=== PATIENT | male | born 1965 | race Caucasian/White ===

== ENCOUNTER → 2020-07-27 07:19 | Outpatient (BNVA) | payer SELFPAY | PROVIDERS: PCP Internal Medicine; Visit Provider Internal Medicine | DX: Z02.79 Encounter for issue of other medical certificate (principal) ==

== ENCOUNTER → 2021-07-29 08:59 | Outpatient (BNVA) | payer SELFPAY | PROVIDERS: PCP Internal Medicine; Visit Provider Internal Medicine | DX: Z02.79 Encounter for issue of other medical certificate (principal) ==

== ENCOUNTER → 2022-07-29 08:18 | Outpatient (BNVA) | payer SELFPAY | PROVIDERS: PCP Internal Medicine; Visit Provider Internal Medicine | DX: Z02.79 Encounter for issue of other medical certificate (principal) ==

== ENCOUNTER 2023-01-23 08:12 | Outpatient (REF) | payer MEDICARE, SELFPAY ==
[2023-01-23 12:05] LABS: Cholesterol 207 mg/dL (<200); HDL Cholesterol 50 mg/dL (>40); LDL Cholesterol Calculated 138 mg/dL (<100); Triglycerides 96 mg/dL (<150)
[2023-01-23 12:29] LABS: Prostate Specific Antigen 0.36 ng/mL (<0.05-4.0)
[2023-01-23 12:57] LABS: Alanine Aminotransferase 26 U/L (0-40); Albumin Level 4.2 g/dL (3.5-5.0); Alkaline Phosphatase 71 U/L (39-117); Anion Gap 14 (12-20); Aspartate Amino Transferase 26 U/L (5-37); Bilirubin Direct 0.2 mg/dL (0.0-0.5); Bilirubin Total 0.8 mg/dL (0.0-1.0); Blood Urea Nitrogen 14 mg/dL (9-16); Calcium 9.4 mg/dL (8.4-10.2); Carbon Dioxide 21 mmol/L (22-29); Chloride 109 mmol/L (96-108); Estimated Glomerular Filt Rate > 60; Glucose Random 101 mg/dL (60-115); Potassium 3.9 mmol/L (3.3-5.1); Sodium 140 mmol/L (135-145); Total Protein 7.6 g/dL (6.5-8.0)
[2023-01-23 13:14] LABS: Reflex LDLD? No
[2023-01-24 04:14] LABS: ~HepC Num1 0.26 S/CO (0.00-0.79); ~Hepatitis C Antibody Nonreactive (Nonreactive)
== END 2023-01-23 08:13 | disposition home or self-care (01) ==
LOC: HO.HHCL 08:12
PROVIDERS: Visit Provider Internal Medicine
DX: Z00.00 Encounter for general adult medical examination without abnormal findings (principal); E78.2 Mixed hyperlipidemia; I10 Essential (primary) hypertension; Z12.5 Encounter for screening for malignant neoplasm of prostate
CPT/HCPCS: 36415; 80048; 80061; 80076; 84153; 86803

== ENCOUNTER → 2023-07-29 08:34 | Outpatient (BNVA) | payer SELFPAY | PROVIDERS: PCP Internal Medicine; Visit Provider Internal Medicine | DX: Z02.79 Encounter for issue of other medical certificate (principal) ==

== ENCOUNTER 2023-11-20 07:57 | Outpatient (REF) | payer MEDICARE, SELFPAY ==
[2023-11-20 12:03] LABS: Alanine Aminotransferase 39 U/L (0-40); Albumin Level 4.4 g/dL (3.5-5.0); Alkaline Phosphatase 75 U/L (39-117); Anion Gap 12 (12-20); Aspartate Amino Transferase 31 U/L (5-37); Bilirubin Direct 0.2 mg/dL (0.0-0.5); Bilirubin Total 0.7 mg/dL (0.0-1.0); Blood Urea Nitrogen 11 mg/dL (9-16); Calcium 9.4 mg/dL (8.4-10.2); Carbon Dioxide 25 mmol/L (22-29); Chloride 108 mmol/L (96-108); Cholesterol 211 mg/dL (<200); Estimated Glomerular Filt Rate > 60; Glucose Random 120 mg/dL (60-115); HDL Cholesterol 53 mg/dL (>40); LDL Cholesterol Calculated 128 mg/dL (<100); Sodium 141 mmol/L (135-145); Total Protein 7.9 g/dL (6.5-8.0); Triglycerides 150 mg/dL (<150)
[2023-11-20 12:09] LABS: Reflex LDLD? No
== END 2023-11-20 07:58 | disposition home or self-care (01) ==
LOC: HO.HHCL 07:57
PROVIDERS: Visit Provider Internal Medicine
DX: E78.2 Mixed hyperlipidemia (principal); I10 Essential (primary) hypertension; R73.02 Impaired glucose tolerance (oral)
CPT/HCPCS: 36415; 80048; 80061; 80076

== ENCOUNTER → 2024-07-27 07:50 | Outpatient (BNVA) | payer SELFPAY | PROVIDERS: PCP Internal Medicine; Visit Provider Internal Medicine | DX: Z02.79 Encounter for issue of other medical certificate (principal) ==

== ENCOUNTER 2025-01-03 08:04 | Outpatient (REF) | payer BC, SELFPAY ==
[2025-01-03 11:52] LABS: Alanine Aminotransferase 30 U/L (0-40); Albumin Level 4.6 g/dL (3.5-5.0); Alkaline Phosphatase 72 U/L (39-117); Anion Gap 11 (12-20); Aspartate Amino Transferase 41 U/L (5-37); Blood Urea Nitrogen 15 mg/dL (9-16); Calcium 9.2 mg/dL (8.4-10.2); Carbon Dioxide 25 mmol/L (22-29); Chloride 109 mmol/L (96-108); Cholesterol 191 mg/dL (<200); Estimated Glomerular Filt Rate > 60; HDL Cholesterol 59 mg/dL (>40); Potassium 3.9 mmol/L (3.3-5.1); Sodium 141 mmol/L (135-145); Total Protein 7.5 g/dL (6.5-8.0); Triglycerides 66 mg/dL (<150)
[2025-01-03 12:46] LABS: Protein/Creatinine Ratio, Ur 0.16 (<0.2); Total Protein Urine Random 20 mg/dL (<12)
== END 2025-01-03 08:05 | disposition home or self-care (01) ==
LOC: HO.HHCL 08:04
PROVIDERS: PCP Internal Medicine; Visit Provider Internal Medicine
DX: I10 Essential (primary) hypertension (principal); R80.0 Isolated proteinuria
CPT/HCPCS: 36415; 80053; 80061; 82570; 84153; 84156; 84443

== ENCOUNTER 2025-02-07 14:28 | Outpatient (REF) | payer BC, SELFPAY ==
[2025-02-07 16:43] LABS: Alanine Aminotransferase 20 U/L (0-40); Albumin Level 4.2 g/dL (3.5-5.0); Alkaline Phosphatase 81 U/L (39-117); Anion Gap 11 (12-20); Aspartate Amino Transferase 25 U/L (5-37); Blood Urea Nitrogen 15 mg/dL (9-16); Calcium 8.8 mg/dL (8.4-10.2); Carbon Dioxide 26 mmol/L (22-29); Chloride 106 mmol/L (96-108); Estimated Glomerular Filt Rate > 60; Potassium 4.3 mmol/L (3.3-5.1); Sodium 139 mmol/L (135-145); Total Protein 7.2 g/dL (6.5-8.0)
--- OUTSIDE RECORDS SUMMARY | 2025-02-07 17:03 | XMS_ITS | Encounter Summary ---
Author Organization [employer] Address [address] [facility] [address] [place] [address] Care Team Providers Care Campus Interviews Intern Name Role Phone Corona Obrien MD Primary Care Provide r Reason for Visit * Reason Comments Med Refill Encounter Details Date Type Department Care Team ([facility] st Contact Info) Description 02/05/2025 Refill [facility] [address] [place], [place] [phone] Corona Obrien MD [address] [place] [address] Social History Tobacco Use Types Packs/Day Years Used Date Smoking Tobacco: Never Passive Smoke Exposure: Never Smokeless Tobacco: Never Alcohol Use Standard Drinks/Week Comments Never 0 (1 standard drink = 0.6 oz pur e alcohol) Depression Answer Date Recorded Patient Health Questionnaire-9 Score 0 05/24/2024 Patient Health Questionnaire-9 Score 0 05/24/2024 Last PHQ-9: Questionnaire Data Not on file 1 07/25/2023 Housing Stability Answer Date Recorded What is your housing situation today? I have prachi sing 10/04/[address] you li ve. Do you have problems with any of the following? None of the above 10/04/2024 Food Insecurity Answer Date Recorded Within the past 12 months, y ou worried that your food would run out before you got money to buy more: Never True 10/04/2024 Within the past 12 months,th e food you bought just didn't last and you didn't have enough money to get more: Never True 10/2024 Transportation Answer Date Recorded In the past 12 months, has l ack of transportation kept you from medical appts, meetings, work or from getting things needed for daily living? No 01/24/2025 Utilities Answer Date Recorded In the past 12 months, has t he electric, gas, oil or water company threatened to shut off services in your home? No 10/04/2024 Depression Answer Date Recorded Patient Health Questionnaire-2 Score 0 05/24/2024 Internet Access Answer Date Recorded Internet Access Q1 Yes 10/04/2024 Internet Access Q2 Not on file 10/04/2024 Sex and Gender Information Value Date Recorded Sex Assigned at Male 03/31/2022 10:17 AM EDT Legal Sex Male 10:17 AM EDT Gender Identity Male 03/31/2022 10:17 AM EDT Sexual Orientation Straight 03/31/2022 10 :17 AM EDT documented as of this encounter Plan of Treatment Not on file documented as of this encounter Visit Diagnoses Not on filedocumented in this encounter Additional Health Concerns Assessment Noted Time PHQ-9 Depression Total Score: 0 05/24/20 9:08 AM EST documented as of this encounter Care Teams Campus Interviews Intern Relationship Specialty Start Date End Date Corona Obrien MD [address] [place] [id number] PCP - General Internal Medicine 01/26/14 documented as of this encounter
--- OUTSIDE RECORDS SUMMARY | 2025-02-07 17:03 | XMS_ITS | Encounter Summary ---
Author Organization [employer] Address [address] [facility] [address] [place] [address] Care Team Providers Care [employer] Name Role Phone Corona Obrien MD Primary Care Provide r Encounter Details Date Type Department Care Team (Latest Contact Info) Description 09/11/2020 Abstract [facility] CONVERSIONS Dental, Provider, DDS Social History Tobacco Use Types Packs/Day Years Used Date Smoking Tobacco: Never Assessed Sex and Gender Information Value Date Recorded Sex Assigned at Male 03/31/2022 10:17 AM EDT Legal Sex Male 10:17 AM EDT Gender Identity Male 03/31/2022 10:17 AM EDT Sexual Orientation Straight 03/31/2022 10 :17 AM EDT documented as of this encounter Plan of Treatment Not on file documented as of this encounter Visit Diagnoses Not on filedocumented in this encounter Care Teams [employer] Relationship Specialty Start Date End Date Corona Obrien MD [address] [place] [id number] PCP - General Internal Medicine 01/26/14 documented as of this encounter
--- OUTSIDE RECORDS SUMMARY | 2025-02-07 17:03 | XMS_ITS | Clinical Summary ---
Author Organization [employer] Address [address] [facility] [address] [place] [address] Care Team Providers Care Collateral Specialist Name Role Phone Corona Obrien MD Primary Care Provide r Allergies Active Allergy Reactions Criticality Noted Date Comments Lisinopril 01/16/2016 Other reaction(s): Angioedema Medications amLODIPine (Norvasc) 10 MG tablet TAKE 1 TABLET BY MOUTH EVERY DAY 90 tablet 1 02/08/20 25 Active metoprolol succinate XL (Toprol XL) 25 MG 24 hr tabletIndicatio ns:Essential hypertension Take 1 tablet (25 mg) by mouth Once per day. Do not crush or chew. 30 tablet 3 05/24/20 24 025 Discontinued(T herapy completed) amLODIPine (Norvasc) 10 MG tablet Take 1 tablet (10 mg) by mouth Once per day. 90 tablet 1 08/17/19 25 025 Discontinued amoxicillin-cla vulanate (Augmentin) 875-125 MG tabletIndicatio ns:Acute frontal sinusitis, recurrence not specified Take 1 tablet by mouth 2 times daily for 7 days. 14 tablet 01/19/20 25 025 Discontinued fluticasone (Flonase) 50 MCG/ACT nasal sprayIndication s:Acute frontal sinusitis, recurrence not specified Administer 1 spray into each nostril Once per day. Shake gently. Before first use, prime pump. After use, clean tip and replace cap. 16 g 2 01/19/20 25 025 Discontinued amoxicillin-cla vulanate (Augmentin) 875-125 MG tabletIndicatio ns:Acute frontal sinusitis, recurrence not specified Take 1 tablet by mouth 2 times daily for 7 days. 14 tablet 01/19/20 025 Discontinued(T herapy completed) fluticasone (Flonase) 50 MCG/ACT nasal sprayIndication s:Acute frontal sinusitis, recurrence not specified Administer 1 spray into each nostril Once per day. Shake gently. Before first use, prime pump. After use, clean tip and replace cap. 16 g 2 01/19/20 025 Discontinued(T herapy completed) Active Problems Problem Noted Date Diagnosed Date Isolated proteinuria 10/04/2024 Overview (10/04/2024): Protein detected on UA at work connection Plan: Repeat, collect 24 hr urine Overweight (BMI 25.0-29.9) 07/21/2023 Assessment & Plan (01/24/2025 9:37 AM EDT): Images from the original note were not included. Patient has managed to loose weight In the past he has been counseled and educated about diet and exercise. Personal goal of weight loss discussed Patient has comorbidity of:HTN Assessment & Plan (07/21/2023 8:18 AM EST): Patient has been counseled and educated about diet and exercise. Personal goal of weight loss discussedPatient has comorbidity of:HTN Preventative health care 01/22/2023 Assessment & Plan (01/24/2025 9:38 AM EDT): PSA test 12/2024 Normal. Colonoscopy: 06/30/2016 Dr Bc Pink Assessment & Plan (05/24/2024 9:10 AM EST): KILEY: PSA test 01/23/2023 was Normal, ordered today Colonoscopy: 06/30/2016 Dr Bc Pink Assessment & Plan (07/21/2023 8:16 AM EST): KILEY: PSA test 01/23/2023 was Normal Colonoscopy: 06/30/2016 Dr Bc Pink Assessment & Plan (01/22/2023 3:09 PM EDT): KILEY: Declined, PSA test 04/11/2021 was Normal Colonoscopy: 06/30/2016 Dr Yancey Normal Impaired glucose tolerance 05/13/2018 Assessment & Plan (01/24/2025 9:36 AM EDT): FBS 01/03/2025: 99. Previously 11/20/2023 120 Hgb A1c 11/24/2023: 6.3 Previously discussed the need to continue to adhere to a low sugar lo carb diet , exercise and lifestyle changes Previously I had recommended to start Metformin XR 500 mg po daily, Pt continues to declines starting any type of medication. Insists that he would like to continue to try to loose weight Being followed by [employer]. 4 month follow up Assessment & Plan (10/04/2024 9:28 AM EDT): FBS 11/20/2023 120 Hgb A1c 11/24/2023: 6.3 Previously discussed the need to continue to adhere to a low sugar lo carb diet , exercise and lifestyle changes Previously I had recommended to start Metformin XR 500 mg po daily, Pt continues to declines starting any type of medication. Insists that he would like to continue to try to loose weight Referred to our [employer] in the past, will repeat 4 month follow up Assessment & Plan (05/24/2024 9:10 AM EST): FBS 11/20/2023 120 Hgb A1c 11/24/2023: 6.3 Previously discussed the need to continue to adhere to a low sugar lo carb diet , exercise and lifestyle changes Previously I had recommended to start Metformin XR 500 mg po daily, Pt continues to declines starting any type of medication. Insists that he would like to continue to try to loose weight Referred to our [employer] in the past 4 month follow up Assessment & Plan (11/24/2023 10:07 AM EDT): FBS 11/20/2023 120 Hgb A1c 11/24/2023: 6.3 again discussed the need to continue to adhere to a low sugar lo carb diet , exercise and lifestyle changes Previously I had recommended to start Metformin XR 500 mg po daily, Pt continues to declines starting any type of medication. Insists that he would like to continue to try to loose weight Referred to our [employer] 4 month follow up Assessment & Plan (07/21/2023 8:15 AM EST): FBS 01/23/2023 101 again discussed the need to continue to adhere to a low sugar lo carb diet , exercise and lifestyle changes Previously I had recommended to start Metformin XR 500 mg po daily, Pt declined would like to continue to try to loose weight Repeat [facility]BG Assessment & Plan (01/22/2023 3:09 PM EDT): FBS 01/03/2023 107 again discussed the need to continue to adhere to a low sugar lo carb diet , exercise and lifestyle changes Previously I had recommended to start Metformin XR 500 mg po daily, Pt declined would like to continue to try to loose weight Repeat FBG Essential hypertension 02/12/2016 Assessment & Plan (01/24/2025 9:34 AM EDT): Patient with Hypertension, here for a f/u BP today: controlled Previously reviewed pt's BP at home within normal ranges. patient is taking Amlodipine 10 mg po daily. Of note: Chlorthalidone made him feel sick , Lisinopril gave him angioedema Most recent electrolytes, Bun and Creatinine done on: Lab Results Component Value Date NA 141 01/03/2025 NA 141 11/20/2023 K 3.9 01/03/2025 K 4.0 11/20/2023 CL 109 (H) 01/03/2025 CL 108 11/20/2023 BUN 15 01/03/2025 BUN 11 11/20/2023 CREATININE 0.90 01/03/2025 CREATININE 0.84 11/20/2023 were wnl . Plan: continue current regimen patient advised to adhere to a low sodium diet, encouraged about medication compliance, counseled about weight loss. 4 month follow up He has been seen by our warehouse supervisor his ASCVD risk score has come down The 10-year ASCVD risk score (Dustin JERNIGAN, et al., 2019) is: 6.9% Values used to calculate the score: Age: 59 years Sex: Male Is Non- : No Diabetic: No Tobacco smoker: No Systolic Blood Pressure: 130 mmHg Is BP treated: No HDL Cholesterol: 59 mg/dL Total Cholesterol: 191 mg/dL Assessment & Plan (01/18/2025 6:44 PM EDT): Today blood pressure is slightly elevated I advised low-sodium diet and to take his medication every day and to follow-up with PCP Assessment & Plan (10/04/2024 9:27 AM EDT): Patient with Hypertension, here for a f/u BP today: elevated, pt's BP at home within normal ranges pt brought his monitor patient is taking Amlodipine 10 mg po daily. Of note: Chlorthalidone made him feel sick , Lisinopril gave him angioedema Most recent electrolytes, Bun and Creatinine done on: Lab Results Component Value Date NA 141 11/20/2023 NA 140 01/23/2023 K 4.0 11/20/2023 K 3.9 01/23/2023 CL 108 11/20/2023 CL 109 (H) 01/23/2023 BUN 11 11/20/2023 BUN 14 01/23/2023 CREATININE 0.84 11/20/2023 CREATININE 0.90 01/23/2023 11/20/2023 were wnl . Plan: continue current regimen, repeat BMP patient advised to adhere to a low sodium diet, encouraged about medication compliance, counseled about weight loss. 4 month follow up Referred to our warehouse supervisor Discussed with patient his ASCVD risk score The 10-year ASCVD risk score (Dustin JERNIGAN, et al., 2019) is: 11.9% Values used to calculate the score: Age: 59 years Sex: Male Is Non- : No Diabetic: No Tobacco smoker: No Systolic Blood Pressure: 148 mmHg Is BP treated: Yes HDL Cholesterol: 53 mg/dL Total Cholesterol: 211 mg/dL Assessment & Plan (05/24/2024 9:18 AM EST): Patient with Hypertension, here for a f/u BP today: elevated, pt's BP at home within normal ranges pt brought his monitor patient is taking Amlodipine 10 mg po daily. Of note: Chlorthalidone made him feel sick , Lisinopril gave him angioedema Most recent electrolytes, Bun and Creatinine done on: Lab Results Component Value Date NA 141 11/20/2023 NA 140 01/23/2023 K 4.0 11/20/2023 K 3.9 01/23/2023 CL 108 11/20/2023 CL 109 (H) 01/23/2023 BUN 11 11/20/2023 BUN 14 01/23/2023 CREATININE 0.84 11/20/2023 CREATININE 0.90 01/23/2023 11/20/2023 were wnl . Plan: continue current regimen patient advised to adhere to a low sodium diet, encouraged about medication compliance, counseled about weight loss. 4 month follow up Referred to our warehouse supervisor Discussed with patient his ASCVD risk score The 10-year ASCVD risk score (Dustin JERNIGAN, et al., 2019) is: 9% Values used to calculate the score: Age: 58 years Sex: Male Is Non- : No Diabetic: No Tobacco smoker: No Systolic Blood Pressure: 144 mmHg Is BP treated: No HDL Cholesterol: 53 mg/dL Total Cholesterol: 211 mg/dL Assessment & Plan (11/24/2023 10:05 AM EDT): Patient with Hypertension, here for a f/u BP today: elevated patient is taking Amlodipine 10 mg po daily. Of note: Chlorthalidone made him feel sick , Lisinopril gave him angioedema Most recent electrolytes, Bun and Creatinine done on: 11/20/2023 were wnl . Plan: patient declines adding anything to his regimen, wants to loose weight. patient advised to adhere to a low sodium diet, encouraged about medication compliance, counseled about weight loss. 4 month follow up Referred to our warehouse supervisor Discussed with patient his ASCVD risk score The 10-year ASCVD risk score (Dustin JERNIGAN, et al., 2019) is: 9% Values used to calculate the score: Age: 58 years Sex: Male Is Non- : No Diabetic: No Tobacco smoker: No Systolic Blood Pressure: 144 mmHg Is BP treated: No HDL Cholesterol: 53 mg/dL Total Cholesterol: 211 mg/dL Assessment & Plan (07/21/2023 9:17 AM EST): Patient with Hypertension, here for a f/u BP today: slightly elevated patient is taking Amlodipine 10 mg po daily. Of note: Chlorthalidone made him feel sick , Lisinopril gave him angioedema Most recent electrolytes, Bun and Creatinine done on: 01/23/2023 were wnl . Will repeat Plan: Continue with current regimen patient advised to adhere to a low sodium diet, encouraged about medication compliance, counseled about weight loss. 6 month follow up Assessment & Plan (01/22/2023 3:28 PM EDT): Patient with Hypertension, here for a f/u BP today slightly elevated, although pt checks his BP at home once a week and his sytolics are always between 120-130 per hi report. So I suspect a component of while coat hypertension patient is taking Amlodipine 10 mg po daily. Of note: Chlorthalidone made him feel sick , Lisinopril gave him angioedema Most recent electrolytes, Bun and Creatinine done on: 01/03/2022 were wnl . Will repeat Plan: Continue with current regimen patient advised to adhere to a low sodium diet, encouraged about medication compliance, counseled about weight loss. 6 month follow up Hyperlipidemia 02/12/2016 Assessment & Plan (01/24/2025 9:35 AM EDT): Patient with elevated lipids. Most recent lipid profile from showed: Lab Results Component Value Date TRIG 66 01/03/2025 TRIG 150 (H) 11/20/2023 CHOL 191 01/03/2025 CHOL 211 (H) 11/20/2023 LDLCHOLCAL 119 (H) 01/03/2025 LDLCHOLCAL 128 (H) 11/20/2023 HDL 59 01/03/2025 HDL 53 11/20/2023 Currently not on a regimen . Pt on diet and exercise Pt does not wan to consider medication convinced he can lower it if he adheres to a low cholesterol diet, For now will continue with diet and exercise. advised to try to adhere to a low cholesterol diet, counseled and educated about diet and exercise, Patient encouraged to come up with a personal goal for weight loss. Being followed by our warehouse supervisor. Assessment & Plan (10/04/2024 9:29 AM EDT): Patient with elevated lipids. Most recent lipid profile from: 11/20/2023 showed: Lab Results Component Value Date TRIG 150 (H) 11/20/2023 TRIG 96 01/23/2023 CHOL 211 (H) 11/20/2023 CHOL 207 (H) 01/23/2023 LDLCHOLCAL 128 (H) 11/20/2023 LDLCHOLCAL 138 (H) 01/23/2023 HDL 53 11/20/2023 HDL 50 01/23/2023 Currently not on a regimen . Pt on diet and exercise Pt does not wan to consider medication convinced he can lower it if he adheres to a low cholesterol diet, For now will continue with diet and exercise, repeat Lipid profile advised to try to adhere to a low cholesterol diet, counseled and educated about diet and exercise, Patient encouraged to come up with a personal goal for weight loss. Referred to warehouse supervisor in the past. Assessment & Plan (05/24/2024 9:09 AM EST): Patient with elevated lipids. Most recent lipid profile from: 11/20/2023 showed: Lab Results Component Value Date TRIG 150 (H) 11/20/2023 TRIG 96 01/23/2023 CHOL 211 (H) 11/20/2023 CHOL 207 (H) 01/23/2023 LDLCHOLCAL 128 (H) 11/20/2023 LDLCHOLCAL 138 (H) 01/23/2023 HDL 53 11/20/2023 HDL 50 01/23/2023 Currently not on a regimen . Pt on diet and exercise Pt does not wan to consider medication convinced he can lower it if he adheres to a low cholesterol diet, For now will continue with diet and exercise, repeat Lipid profile advised to try to adhere to a low cholesterol diet, counseled and educated about diet and exercise, Patient encouraged to come up with a personal goal for weight loss. Referred to warehouse supervisor in the past. Assessment & Plan (11/24/2023 10:10 AM EDT): Patient with elevated lipids. Most recent lipid profile from: 11/20/2023 showed: Lab Results Component Value Date TRIG 150 (H) 11/20/2023 TRIG 96 01/23/2023 CHOL 211 (H) 11/20/2023 CHOL 207 (H) 01/23/2023 LDLCHOLCAL 128 (H) 11/20/2023 LDLCHOLCAL 138 (H) 01/23/2023 HDL 53 11/20/2023 HDL 50 01/23/2023 Currently not on a regimen . Pt on diet and exercise Pt does not wan to consider medication convinced he can lower it if he adheres to a low cholesterol diet, For now will continue with diet and exercise advised to try to adhere to a low cholesterol diet, counseled and educated about diet and exercise, Patient encouraged to come up with a personal goal for weight loss. Referred to warehouse supervisor Assessment & Plan (07/21/2023 8:16 AM EST): Patient with elevated lipids. Most recent lipid profile from: 01/23/2023 showed: Component Ref Range & Units 5 mo ago 1 yr ago 2 yr ago Triglycerides <150 mg/dL 96 201 High CM 107 Comment: Desirable Triglyceride: less than 150 mg/dLBorderline High Triglyceride 150-199 mg/dLHigh Triglyceride: 200-499 mg/dLVery High Triglyceride: greater than or equal to 5OO mg/dL Cholesterol <200 mg/dL 207 High Comment: Desirable Cholesterol: less than 200 mg/dLBorderline High Cholesterol: 200-239 mg/dLHigh Cholesterol: greater than 239 mg/dL LDL Cholesterol Calculated <100 mg/dL 138 High Comment: Desirable LDL: less than 100 mg/dLNear Optimal/Above Optimal LDL: 110- 129 mg/dLBorderline High LDL: 130-159 mg/dLHigh LDL: 160-189 mg/dLVery High LDL: greater than or equal to 190 mg/dL HDL Cholesterol >40 mg/dL 50 53 R 55 R Currently not on a regimen . Pt on diet and exercise Pt does not wan to consider medication convinced he can lower it if he adheres to a low cholesterol diet, Repeat Lipid profile For now will continue with diet and exercise advised to try to adhere to a low cholesterol diet, counseled and educated about diet and exercise, Patient encouraged to come up with a personal goal for weight loss. Assessment & Plan (01/22/2023 3:08 PM EDT): Patient with elevated lipids. Most recent lipid profile from: 01/03/2022 shows a total cholesterol of: 214 triglycerides of: 201 HDL of: 53 and LDL of: 126 Currently not on a regimen . Pt on diet and exercise Pt does not wan to consider medication convinced he can lower it if he adheres to a low cholesterol diet, Repeat Lipid profile For now will continue with current regimen. advised to try to adhere to a low cholesterol diet, counseled and educated about diet and exercise, Patient encouraged to come up with a personal goal for weight loss. 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 Resolved Problems Problem Noted Date Diagnosed Date Resolved Date Acute frontal sinusitis 01/18/2025 08/2 10/2024 Encounters Date Type Department Care Team Description 02/05/2025 Refill [facility] [address] [place], [place] [phone] Corona Obrien MD 02/03/2025 Orders Only [facility] [address] [place] [phone] Mariela Li RN Immunity status testing 01/24/2025 9:15 AM EDT Office Visit [facility] [address] [place] [phone] Corona Obrien MD Essential hypertension (Primary Dx); Mixed hyperlipidemia; Impaired glucose tolerance; Overweight (BMI 25.0-29.9); Preventative health care; Dietary counseling; Exercise counseling 01/24/2025 Travel 01/23/2025 Telephone [facility] [address] [place] [phone] Corona Obrien MD CHART PREP 01/18/2025 5:00 PM EDT Office Visit [facility] [address] [place] [phone] Melissa Douglas MD Essential hypertension (Primary Dx); Acute frontal sinusitis, recurrence not specified 01/18/2025 Travel 12/16/2024 9:15 AM EDT Office Visit [facility] [address] [place] [address] Aileen Mayfield, OD Presbyopia (Primary Dx) 12/09/2024 9:00 AM EDT Clinical Support [facility]/NUTRITION [address] [place], [place] [phone] Judi Sanford RD Hypertension, essential (Primary Dx); Impaired glucose tolerance 12/09/2024 Travel 11/08/2024 9:00 AM EDT Clinical Support [facility]NUTRITION [address] [place] [address] Essential hypertension (Primary Dx); Impaired glucose tolerance 11/08/2024 Travel from Last 3 Months Immunizations Immunization Administration Dates Next Due Influenza injectable quadriv alent IIV4 with preservative 02/10/2018 Moderna Covid-19 Vaccine 6+ Bivalent 07/08/2022 Tdap 04/14/2022,04/09/2012 Zoster, Recombinant 12/12/2019,06/08/2019 Social History Tobacco Use Types Packs/Day Years Used Date Smoking Tobacco: Never Passive Smoke Exposure: Never Smokeless Tobacco: Never Tobacco Cessation:Counseling Given: Not Answered Alcohol Use Standard Drinks/Week Comments Never 0 (1 standard drink = 0.6 oz pur e alcohol) Depression Answer Date Recorded Patient Health Questionnaire-9 Score 0 05/24/2024 Patient Health Questionnaire-9 Score 0 05/24/2024 Last PHQ-9: Questionnaire Data Not on file 1 07/25/2023 Housing Stability Answer Date Recorded What is your housing situation today? I have prachi kearney 10/04/[address] you li [...] Orientation Straight 03/31/2022 10 :17 AM EDT Last Filed Vital Signs Vital Sign Reading Time Taken Comments Blood Pressure 130/86 01/24/2025 9:22 AM EDT Pulse 64 01/24/2025 9:22 AM EDT Temperature 36.4 C (97.5 F) 01/24/2025 9:22 AM EDT Respiratory Rate 18 01/24/2025 9:22 AM EDT Oxygen Saturation 96% 01/18/2025 5:14 PM EDT Inhaled Oxygen Concentration - - Weight 86.4 kg (190 lb 8 oz) 01/24/2025 9:22 AM EDT Height 170.2 cm (5' 7 ) 01/24/2025 9:22 AM EDT Body Mass Index 29.84 01/24/2025 9:22 AM EDT Plan of Treatment Health Maintenance Due Date Last Done Comments CT Colonography 1965 Dental X-Ray: Bitewings 1965 FIT DNA/Cologuard 1965 FIT 1965 FOBT 1965 HIV Screening 1965 Sigmoidoscopy 1965 Hepatitis B Vaccines (1 of 3 - 19+ 3-dose series) 1984 Pneumococcal Vaccine: 50+ Years (1 of 1 - PCV) 08/28/2015 Dental Oral Exam 05/26/2024 11/24/2023 Dental Prophylaxis 05/26/2024 11/24/2023, 08/04/2022 COVID-19 Vaccine ( season) 2025 07/08/2022, 05/02/2021, 06/25/2020, Additional history exists Influenza Vaccine (#1) 2025 02/10/2018 Depression Screening 05/24/2025 05/24/2024, 05/24/20 Dental X-Ray: Full Mouth 08/05/2025 08/04/2022 Disability Screening 10/04/2025 10/04/2024 Alcohol/Substance Use Screening 01/24/2026 01/24/2025 SDOH Screening 01/24/2026 01/24/2025 Tobacco Screening 01/24/2026 01/24/2025 Colonoscopy 06/30/2026 06/30/2016 Colorectal Cancer Screening 06/30/2026 Lipid Panel 01/03/2030 01/03/2025, 10/31, 01/23/2023, Additional history exists DTaP/Tdap/Td Vaccines (3 - Td or Tdap) 04/14/2032 04/14/2022, 04/09/2012 RSV Patients and Patients Aged 60 years or older (1 - 1-dose 75+ series) 2040 Zoster Vaccines Completed 12/12/2019, 06/08/2019 Hepatitis C Screening Completed 01/23/2023, 022 HIB Vaccines Aged Out No longer eligi ble based on patient's age to complete this topic HPV Vaccines Aged Out No longer eligi ble based on patient's age to complete this topic Hepatitis A Vaccines Aged Out No long er eligible based on patient's age to complete this topic IPV Vaccines Aged Out No longer eligi ble based on patient's age to complete this topic Meningococcal B Vaccine Aged Out No l onger eligible based on patient's age to complete this topic Meningococcal Vaccine Aged Out No robert rasta eligible based on patient's age to complete this topic RSV under 20 months Aged Out No longe r eligible based on patient's age to complete this topic Rotavirus Vaccines Aged Out No longer eligible based on patient's age to complete this topic Procedures Procedure Name Priority Date/Time Associated Diagnosis Comments COMPREHENSIVE METABOLIC PANEL Routine 02/07/2025 2:32 PM EDT Essential hypertension POCT INFLUENZA A (ID NOW RAPID MOLECULAR) Routine 01/18/2025 5:36 PM EDT Acute frontal sinusitis, recurrence not specified POC RODGERS ID NOW STREP A Routine 01/18/2025 5:35 PM EDT Acute frontal sinusitis, recurrence not specified POCT INFLUENZA B (ID NOW RAPID MOLECULAR) Routine 01/18/2025 5:35 PM EDT Acute frontal sinusitis, recurrence not specified POCT RAPID COVID ANTIGEN Routine 01/18/2025 5:33 PM EDT Acute frontal sinusitis, recurrence not specified PROTEIN CREATININE RATIO, URINE Routine 01/03/2025 9:31 AM EDT Isolated proteinuria without specific morphologic lesion TSH W/REFLEX TO FT4 Routine 01/03/2025 8 :09 AM EDT Essential hypertension LIPID PANEL, STANDARD Routine 01/03/2025 8:09 AM EDT Essential hypertension PSA, SCREEN Routine 01/03/2025 8:09 AM EDT Essential hypertension COMPREHENSIVE METABOLIC PANEL Routine 01/03/2025 8:09 AM EDT Essential hypertension PROPHYLAXIS - ADULT Routine 11/24/2023 1 1:00 AM EDT PERIODIC ORAL EVALUATION - ESTABLISHED PATIENT Routine 11/24/2023 11:00 AM EDT HEPATITIS C ANTIBODY REFLEX Routine 01/23/2023 8:16 AM EDT PANORAMIC RADIOGRAPHIC IMAGE Routine 08/04/2022 5:00 PM EST HM COLONOSCOPY Routine 06/30/2016 from Last 3 Months or Most Recently Relevant to Health Maintenance Results * POCT Rapid Influenza A RODGERS ID NOW (01/18/2025 5:36 PM EDT) Influenza A Negative Negative, Indeterminate [facility] QC Media Lot # [id number] [facility] Lot# Expiration Date , [facility] Swab 01/18/2025 5:36 PM EDT us Melissa Win MD POINT OF CARE TEST EN TER/EDIT ORDERABLES Final Result [facility] [address] [place] [phone] * POCT Rapid Influenza B RODGERS ID NOW (01/18/2025 5:35 PM EDT) [facility] Influenza B Negative Negative, Indeterminate [facility] QC Media Lot # [id number] [facility] Lot# Expiration Date [facility] Swab 01/18/2025 5:35 PM EDT Melissa Win MD POINT OF CARE TEST EN TER/EDIT ORDERABLES Final Result [facility] [address] [place] [address] [phone] * POCT Rapid Strep A RODGERS ID NOW (01/18/2025 5:35 PM EDT) [facility] Rapid Strep A Screen Negative Negative, None Detected QC Media Lot # [id number] Lot# Expiration Date Swab 01/18/2025 5:35 PM EDT Result [facility] Melissa Win MD POINT OF CARE TEST EN TER/EDIT ORDERABLES Final Result * POCT Rapid COVID Ag (01/18/2025 5:33 PM EDT) [facility] Rapid COVID Ag Negative QC Media Lot # [id number] Lot# Expiration Date Swab 01/18/2025 5:33 PM EDT Melissa Win MD POINT OF CARE TEST EN TER/EDIT ORDERABLES Final Result * (ABNORMAL) Protein Creatinine Ratio, Urine (01/03/2025 9:31 AM EDT) [facility] Creatinine, Urine 128.48 mg/dL [facility] Protein, Total, Random Urine 20(H) <12 mg/dL [facility] Protein/Creati nine Ratio, Ur 0.16 <0.2 [facility] Comment:The spot urine prote in:creatinine ratio may increase to 0.3during normal . 01/03/2025 9:31 AM EDT 01/03/2025 11:46 AM EDT Corona Oliver MD LAB URINE ORDERABLES Final Result Performing Organization Address City/[facility]/ZIP Co de Phone Number [facility] [address] [place] [phone] * PSA, Screen (01/03/2025 8:09 AM EDT) PSA, Total 0.34 <0.05 - 4.0 ng/mL [facility] Comment:PSA methodology: Maida Sloan i ChemiluminescentMicroparticle Immunoassay (CMIA) Blood Venous blood specimen / Unknown 01/03/2025 8:09 AM EDT 01/03/2025 11:14 AM EDT Corona Oliver MD LAB BLOOD ORDERABLES Final Result Performing Organization Address City/[facility]/ZIP Co de Phone Number [facility] [address] [place] [phone] * TSH with Reflex to Free T4 (01/03/2025 8:09 AM EDT) TSH reflex Free T4 1.39 0.32 - 4.0 uIU/mL [facility] Blood Venous blood specimen / Unknown 01/03/2025 8:09 AM EDT 01/03/2025 11:14 AM EDT Corona Oliver MD LAB BLOOD ORDERABLES Final Result Performing Organization Address City/[facility]/ZIP Co de Phone Number [facility] [address] [place] [phone] * (ABNORMAL) Lipid Panel, Standard (01/03/2025 8:09 AM EDT) Triglycerides 66 <150 mg/dL [facility] Comment:Desirable Triglyceri de: less than 150 mg/dLBorderline High Triglyceride 150-199 mg/dLHigh Triglyceride: 200-499 mg/dLVery High Triglyceride: greater than or equal to 5OO mg/dL Cholesterol 191 <200 mg/dL [facility] Comment:Desirable Cholestero l: less than 200 mg/dLBorderline High Cholesterol: 200-239 mg/dLHigh Cholesterol: greater than 239 mg/dL LDL Cholesterol Calculated 119(H) <100 mg/dL [facility] Comment:Desirable LDL: less than 100 mg/dLNear Optimal/Above Optimal LDL: 110- 129 mg/dLBorderline High LDL: 130-159 mg/dLHigh LDL: 160-189 mg/dLVery High LDL: greater than or equal to 190 mg/dL HDL Cholesterol 59 >40 mg/dL [facility] Comment:Desirable HDL: great er than 40 mg/dL Note: This HDL assay may give artificially low results in patients with liver disease. Blood Venous blood specimen / Unknown 01/03/2025 8:09 AM EDT 01/03/2025 11:14 AM EDT us Corona Oliver MD LAB BLOOD ORDERABLES Final Result [facility] [address] [place] [phone] * (ABNORMAL) Comprehensive Metabolic Panel (01/03/2025 8:09 AM EDT) Sodium 141 135 - 145 mmol/L [facility] Potassium 3.9 3.3 - 5.1 mmol/L [facility] Chloride 109(H) 96 - 108 mmol/L [facility] Carbon Dioxide 25 22 - 29 mmol/L [facility] Anion Gap 11(L) 12 - 20 [facility] Urea Nitrogen (BUN) 15 9 - 16 mg/dL [facility] Creatinine, Serum 0.90 0.5 - 1.4 mg/dL [facility] Estimated Glomerular Filt Rate >60 [facility] Comment:Chronic Kidney Disea se: Estimated GFR < 60 mL/min/1.13v3Pvobxv Kidney Disease: Estimated GFR < 15 mL/min/1.73m2 Glucose 99 60 - 115 mg/dL [facility] Calcium 9.2 8.4 - 10.2 mg/dL [facility] Bilirubin, Total 0.7 0.0 - 1.0 mg/dL [facility] Aspartate Amino Transferase 41(H) 5 - 37 U/L [facility] Alanine Aminotransferase 30 0 - 40 U/L [facility] Total Protein 7.5 6.5 - 8.0 g/dL [facility] Albumin Level 4.6 3.5 - 5.0 g/dL [facility] Alkaline Phosphatase 72 39 - 117 U/L [facility] Blood Venous blood specimen / Unknown 01/03/2025 8:09 AM EDT 01/03/2025 11:14 AM EDT Corona Oliver MD LAB BLOOD ORDERABLES Final Result Performing Organization Address City/[facility]/ZIP Co de Phone Number [facility] [address] [place] [phone] * Hepatitis C Antibody Reflex (01/23/2023 8:16 AM EDT) Hepatitis C Antibody Nonreactive Nonreactive [facility] Comment:Antibodies to HCV no t detected; does not exclude early acuteHCV infection. 01/23/2023 8:16 AM EDT 01/23/2023 11:00 AM EDT Corona Oliver MD LAB BLOOD ORDERABLES Final Result Performing Organization Address City/[facility]/ZIP Co de Phone Number [facility] [address] [place] [phone] * Hm Colonoscopy (06/30/2016) Colonoscopy Normal Normal Historical Provider HEALTH MAINTENANCE Final Result from Last 3 Months or Most Recently Relevant to Health Maintenance Insurance [facility] Care Teams Collateral Specialist Relationship Specialty Start Date End Date Corona Obrien MD [address] [place] [phone] PCP - General Internal Medicine 01/26/14
--- OUTSIDE RECORDS SUMMARY | 2025-02-07 17:03 | XMS_ITS | Encounter Summary ---
Author Organization [employer] Address [address] [facility] [address] [place] [address] Care Team Providers Care Belt Fixer Name Role Phone Corona Obrien MD Primary Care Provide r Encounter Details Date Type Department Care Team (Latest Contact Info) Description 12/15/2018 Abstract [facility] CONVERSIONS Dental, Provider, DDS Social [...] on filedocumented in this encounter Care Teams Belt Fixer Relationship Specialty Start Date End Date Corona Obrien MD [address] [place] [phone] PCP - General Internal Medicine 01/26/14 documented as of this encounter
--- OUTSIDE RECORDS SUMMARY | 2025-02-07 17:03 | XMS_ITS | Encounter Summary ---
Author Organization [employer] Address [address] [place] [address] Care Team Providers Care Behavioral Health Consultant Name Role Phone Corona Obrien MD Primary Care Provide r Encounter Details Date Type Department Care Team (Late st Contact Info) Description 02/03/2025 Orders Only [facility] [address] [place], [place] [phone] Mariela Li, RN [address] [place] [phone] Immunity status testing Social History Tobacco Use Types Packs/Day Years [...] AM EDT documented as of this encounter Progress Notes * Mariela Li RN - 02/03/2025 1:19 PM EDT Pt requesting immunity status testing for work. Ordered. Pt to go to the lab at his convenience. documented in this encounter Plan of Treatment Scheduled Orders Name Type Priority Associated Diagnoses Orde r Schedule Measles, Mumps, and Rubella (MMR) Antibodies (IgG) Panel, Immune Status Lab Routine Immunity status testing Expected: 02/03/2025 (Approximate), Expires: 02/03/2026 Varicella Zoster Antibody, IgG Lab Routine Immunity status testing Expected: 02/03/2025 (Approximate), Expires: 02/03/2026 Hepatitis B Surface Antibody, Qualitative Lab Routine Immunity status testing Expected: 02/03/2025 (Approximate), Expires: 02/03/2026 Hepatitis B Core Antibody, Total Lab Routine Immunity status testing Expected: 02/03/2025 (Approximate), Expires: 02/03/2026 Hepatitis B surface antigen, EIA Lab Routine Immunity status testing Expected: 02/03/2025 (Approximate), Expires: 02/03/2026 documented as of this encounter Visit Diagnoses Diagnosis Immunity status testing Antibody response examination documented in this encounter Additional Health Concerns Assessment Noted Time PHQ-9 Depression Total Score: 0 05/24/20 9:08 AM EST documented as of this encounter Care Teams Behavioral Health Consultant Relationship Specialty Start Date End Date Corona Obrien MD [address] [place] [phone] PCP - General Internal Medicine 01/26/14 documented as of this encounter
--- OUTSIDE RECORDS SUMMARY | 2025-02-07 17:03 | XMS_ITS | Encounter Summary ---
Author Organization [employer] Address [address] [facility] [address] [place] [address] Care Team Providers Care Paper Gluing Operator Name Role Phone Corona Obrien MD Primary Care Provide r Encounter Details Date Type Department Care Team (Latest Contact Info) Description 11/12/2021 Abstract [facility] CONVERSIONS Dental, Provider, DDS Social [...] on filedocumented in this encounter Care Teams Paper Gluing Operator Relationship Specialty Start Date End Date Corona Obrien MD [address] [place] [phone] PCP - General Internal Medicine 01/26/14 documented as of this encounter
[2025-02-08 03:42] LABS: HBS Num1 511.34 mIU/mL (0-7.99); HBc Num1 0.10 S/CO (0.00-0.79); HBsAGNum1 0.40 S/CO (0.00-0.99); Hepatitis B Surface Antigen Negative (Negative); ~Hepatitis B Surface Antibody REACTIVE (Nonreactive)
[2025-02-08 06:28] LABS: Rubeola IgG (Measles) 105.00 AU/mL
== END 2025-02-07 14:29 | disposition home or self-care (01) ==
LOC: HO.HHCL 14:28
PROVIDERS: PCP Internal Medicine; Visit Provider Internal Medicine
DX: I10 Essential (primary) hypertension (principal); Z01.84 Encounter for antibody response examination; Z12.5 Encounter for screening for malignant neoplasm of prostate
CPT/HCPCS: 36415; 80053; 84153; 84443; 86704; 86706; 86735; 86762; 86765; 86787; 87340